=== PATIENT | male | born 1965 | race Caucasian/White ===

== ENCOUNTER 2018-11-04 07:33 | Day surgery (SDC) | payer OTHER ==
[~2018-11-04] VITALS: Ht 177.8 cm; Wt 98.3 kg
[~2018-11-04 07:33] MED LIST: Aspirin EC81 MG; B Complex #11 EACH PO; CLOP75; Coenzyme Q10400 MG; D3-20002000 UNIT PO; DIGO.125; FISH1000; HYDR1TAB94 PO; KRILL OIL 3001 EACH PO; LIVALO4 MG; LOSARTAN POTAS100 MG PO; METO50ER; NAPR220 PO; OLME20; TAMS.4ER PO; TEMA15
[2018-11-04] MEDS ORDERED: LIVALO4 MG PO (08:09)
[2018-11-04] MEDS ORDERED: LOSA50 PO (08:09)
[2018-12-05] MEDS ORDERED: HYDR1TAB94 PO (16:36)
== END 2018-11-04 10:15 | disposition home or self-care (01) ==
LOC: ORSCSDS 07:33
PROVIDERS: Internal Medicine Gastroenterology
PROC: 0DB68ZX Excision of Stomach, Via Natural or Artificial Opening Endoscopic, Diagnostic (ICD-10-PCS; principal; 2018-11-04 09:00)
PROC: 0DJD8ZZ Inspection of Lower Intestinal Tract, Via Natural or Artificial Opening Endoscopic (ICD-10-PCS; principal; 2018-11-04 09:00)
DX: K21.9 Gastro-esophageal reflux disease without esophagitis (principal); R05 Cough; K29.80 Duodenitis without bleeding; K64.8 Other hemorrhoids; Z12.11 Encounter for screening for malignant neoplasm of colon; Z86.010 Personal history of colon polyps; Z80.0 Family history of malignant neoplasm of digestive organs; I10 Essential (primary) hypertension; E78.5 Hyperlipidemia, unspecified; I25.10 Atherosclerotic heart disease of native coronary artery without angina pectoris; Z79.82 Long term (current) use of aspirin; Z79.899 Other long term (current) drug therapy
CPT/HCPCS: 88305; 88342; J0330; J1980; J2405; J7120

== ENCOUNTER 2018-12-08 06:04 | Day surgery (SDC) | payer OTHER ==
[~2018-12-08] VITALS: Ht 210.8 cm; Wt 103.0 kg
[~2018-12-08 06:04] MED LIST changes: +LIVALO4 MG PO; +LOSA50 PO
[2018-12-08] MEDS ORDERED: Isosorbide Mono30 MG PO (09:26)
--- NOTE | 2018-12-08 13:58 | NUR ---
PT REMINDED TO PICKUP NEW MEDICATION, CALLED IN TO HIS PHARMACY OF CHOICE. DISCHARGE TEACHING PERFORMED IN PRESENCE OF . EMPHASIZED MOBILITY RESTRICTIONS AND INFECTION CONTROL. QUESTIONS ANSWERED. SIGNED ACKNOWLEDGEMENTS OBTAINED AND COPIES PROVIDED. IV DC'D WITH CANNULA TIP INTACT. FOLDED 2X2 GAUZE PLACED WITH COBAN WRAP. PT ELECTED TO AMBULATE UPON DISCHARGE IN COMPANY OF PHYSICIAN. NO KNOWN COMPLICATIONS EVIDENT.
== END 2018-12-08 14:00 | disposition home or self-care (01) ==
LOC: MHTC 06:04
DX: I25.10 Atherosclerotic heart disease of native coronary artery without angina pectoris (principal); I10 Essential (primary) hypertension; Z87.891 Personal history of nicotine dependence
CPT/HCPCS: 85347; 93454; 93571; 93572; 99152; 99153; C1769; C1887; C1894; J1644; J2250; J3010; J7030; Q9967

== ENCOUNTER 2019-06-09 17:23 | Inpatient (IN) | payer OTHER ==
[~2019-06-09] VITALS: Ht 177.8 cm; Wt 96.4 kg
[~2019-06-09 17:23] MED LIST changes: -Aspirin EC81 MG; +Aspirin EC81 MG PO; +Isosorbide Mono30 MG PO; +MELATONIN5 M1 PO; -METO50ER; +METO50ER PO; +RANO500T PO; +REPATHA SU140 MG/1 M SC
[2019-06-09] MEDS ORDERED: Nitrostat0.4 MG SL (18:03)
[2019-06-09] MEDS ORDERED: CLOR7.5 PO (18:04)
[2019-06-09] MEDS ORDERED: TRAZ50 PO (18:04)
[2019-06-09 18:20] LABS: BASOPHILS ABSOLUTE AUTO 0.04 K/mm3 (0.00-0.23); BASOPHILS PERCENT AUTO 1 % (0-2); EOSINOPHILS ABSOLUTE AUTO 0.15 K/mm3 (0.00-0.68); EOSINOPHILS PERCENT AUTO 3 % (0-6); Hematocrit 40.8 % (37.0-53.0); Hemoglobin 13.9 g/dL (13.5-17.5); IMMATURE GRAN ABSOLUTE AUTO 0.02 K/mm3 (0.00-0.10); IMMATURE GRAN PERCENT AUTO 0 % (0-1); LYMPHOCYTES ABSOLUTE AUTO 1.37 K/mm3 (0.84-5.20); LYMPHOCYTES PERCENT AUTO 26 % (21-46); MONOCYTES ABSOLUTE AUTO 0.71 K/mm3 (0.16-1.47); MONOCYTES PERCENT AUTO 13 % (4-13); Mean Corpuscular HGB 32.1 pg (26.0-34.0); Mean Corpuscular HGB Conc 34.1 g/dL (31.5-36.5); Mean Corpuscular Volume 94 fL (80-100); Mean Platelet Volume 9.5 fL (9.1-12.4); NEUTROPHILS ABSOLUTE AUTO 3.05 K/mm3 (1.96-9.15); NEUTROPHILS PERCENT AUTO 57 % (41-73); Platelet Count 383 K/mm3 (150-400); RDW Coefficient Variation 13.6 % (11.7-14.2); RDW Standard Deviation 46.8 fL (35.1-46.3); Red Blood Cell Count 4.33 M/mm3 (4.30-5.90); White Blood Cell Count 5.34 K/mm3 (4.00-11.30)
[2019-06-09 18:39] LABS: Alanine Aminotransfer (ALT/SGP 28 U/L (12-78); Albumin, Blood 3.8 g/dL (3.4-5.0); Albumin/Globulin Ratio 1.1 (0.8-1.8); Alk Phos 78 U/L (50-136); Anion Gap 4 mmol/L (6-16); Aspartate Aminotrans (AST/SGOT 17 U/L (12-37); Bilirubin, Total 0.3 mg/dL (0.1-1.0); Blood Urea Nitrogen 16 mg/dL (8-24); CO2, Blood 26 mmol/L (21-32); Chloride, Blood 108 mmol/L (98-108); Creatinine, Blood 0.84 mg/dL (0.60-1.20); Globulin, Blood 3.4 g/dL (2.2-4.0); Glomerular Filtration Rate >60 (60-); Glucose, Blood 109 mg/dL (70-99); Potassium, Blood 3.8 mmol/L (3.5-5.5); Sodium, Blood 138 mmol/L (136-145); Total Protein, Blood 7.2 g/dL (6.4-8.2); Troponin I <0.015 ng/mL (0.000-0.040)
[2019-06-09] MEDS ORDERED: DILT120 PO (19:29)
--- NOTE | 2019-06-10 05:57 | NUR ---
CALLED MANAGER OF BUSINESS OPERATIONS. LEFT V/M REGARING APPOINTMENT PATIENT HAS WITH DR LARKIN AND HOW TO REACH US HERE ON THE MEDICAL FLOOR. SPOKE TO DR MAHARAJ REPORTED STATUS OF PREPARATIONS FOR PATIENT TO GO TO MANAGER OF BUSINESS OPERATIONS. WORKING ON PREOP CHECK LIST
--- NOTE | 2019-06-10 07:09 | NUR ---
TRANSFER PT OUT OF THE ROOM AND ALREADY TO THE LICENSED FUNERAL DIRECTOR AND EMBALMER PER THE NOC SHIFT RN, ASSESSMENT NOT DONE AT THIS TIME
--- NOTE | 2019-06-10 10:10 | NUR ---
PATIENT ARRIVED VIA ICU BED FROM HEAT TREATER TO ROOM ICU 8, PATIENT IS AWAKE, ALERT AND ORIENTED, AT BEDSIDE, PATIENT HAS SHEATH IN PLACE D/T HIGH APTT, PER DR. TOUSSAINT PULL SHEATH WHEN PT IS LESS THAN 40, WILL RECHECK AT NOON, RIGHT GROIN SITE SOFT, NONTENDER, NO BLEEDING OR HEMATOMA NOTED, HAS PRESSURE BAG IN PLACE, PATIENT WAS INSTRUCTED THAT HE CANNOT MOVE RIGHT LEG BUT MAY BEND LEFT LEG, ALSO WILL HAVE TO LIE FLAT UNTIL 4 HOURS AFTER SHEATH IS PULLED, THEN ABLE TO SIT UP, PULSES ARE PALPABLE, NS INFUSING AT 125 CC/HR, PATIENT URINATED 375 CC IN URINAL, ORIENTED TO ROOM AND NEW ENVIRONMENT, CALL LIGHT GIVEN AND EXPLAINED, ICE WATER AT BEDSIDE, CALL LIGHT IN REACH WILL CONTINUE TO MONITOR.
--- NOTE | 2019-06-10 10:15 | NUR ---
PATIENT HAD A STENT TO THE PROXIMAL LAD RE-BALLOONED, AND A NEW STENT PLACED IN THE MID LAD.
--- NOTE | 2019-06-10 12:03 | NUR ---
IMAGING IN TO DO ORDERED ECHO, PATIENT NOT ABLE TO BE REPOSITIONED, ECHO DONE WITH PATIENT LYING FLAT.
[2019-06-10 12:56] LABS: International Normalized Ratio 1.06; Prothrombin Time Results 11.2 Sec (9.7-11.5)
--- NOTE | 2019-06-10 13:12 | NUR ---
PT WAS DRAWN AND RESULTED IN 11.2, WHICH INDICATES THAT SHEATH MAY BE REMOVED.
--- NOTE | 2019-06-10 14:10 | NUR ---
RN FROM OLERICULTURE PROFESSOR HERE TO PULL SHEATH FROM PATIENT'S RIGHT GROIN, AT BEDSIDE, CALL LIGHT IN REACH, WILL CONTINUE TO MONITOR.
--- NOTE | 2019-06-10 15:41 | NUR ---
SHEATH WAS PULLED AT ABOUT 1415, PATIENT TOLERATED WELL, RIGHT GROIN SITE COVERED WITH MIMI DEVICE, NO BLEEDING OR HEMATOMA NOTED, SOFT, NONTENDER, PATIENT RESTING COMFORTABLY, AT BEDSIDE, CALL LIGHT IN REACH, WILL CONTINUE TO MONITOR.
--- NOTE | 2019-06-10 16:07 | NUR ---
DR. PALACIOS IN TO SEE PATIENT, NO NEW ORDERS RECEIVED.
--- NOTE | 2019-06-10 16:56 | NUR ---
PATIENT SLEEPING AT THIS TIME, EARPLUGS GIVEN, VSS, CALL LIGHT IN REACH, AT BEDSIDE, WILL CONTINUE TO MONITOR.
--- NOTE | 2019-06-10 17:50 | NUR ---
SHIFT SUMMARY NOTE: NO ACUTE EVENTS DURING THIS SHIFT, PATIENT CAME FROM RETURNED GOODS SORTER WITH SHEATH IN PLACE, WAS PULLED AFTER PT LESS THAN 40, PT 11.2 AT THAT TIME, PULLED BY RETURNED GOODS SORTER RN, PATIENT TOLERATED WELL, NO BLEEDING, NO HEMATOMA, SOFT AND NONTENDER, OPSITE IN PLACE, VSS, AFEBRILE, RECEIVED NORCO ONCE FOR BACK PAIN, EATING WELL, WAS AT BEDSIDE MOST OF THE DAY, FOR DETAILS SEE SHIFT ASSESSMENT DOCUMENTATION AND NURSES NOTES, CALL LIGHT IN REACH, WILL CONTINUE TO MONITOR AND GIVE REPORT TO ONCOMING METAL DOOR ASSEMBLER.
--- NOTE | 2019-06-10 19:00 | NUR ---
ASSUMED CARE ASSUMED CARE OF PATIENT. AWAKE AND ALERT, WATCHING TV WHEN UNDISTURBED. DENIES C/O PAIN OR DISCOMFORT AT THIS TIME. REPOSITIONS SELF IN BED. MONITOR SHOWS NSR, RATE 70s. BP STABLE. RESPIRATIONS EVEN AND UNLABORED. RA SATS STABLE. RIGHT GROIN SITE WITH DRSG C/D/I. NO EVIDENCE OF HEMATOMA OR BLEEDING. SEE SHIFT ASSESSMENT FOR FULL ASSESSMENT.
--- NOTE | 2019-06-11 06:29 | NUR ---
SHIFT SUMMARY NO ACUTE CHANGES DURING NOC. SLEPT INTERMITTENTLY. DENIES C/O PAIN OR DISCOMFORT. VSS. UP IN ROOM AD MADI. RIGHT GROIN SITE SOFT AND WITHOUT HEMATOMA OR BLEEDING. SUN C/D/I. WILL REPORT TO DAY SHIFT RN WHEN AVAILABLE.
[2019-06-11] MEDS ORDERED: ASPI325 PO (07:47)
[2019-06-11] MEDS ORDERED: CLOP75 PO (07:48)
--- NOTE | 2019-06-11 09:36 | NUR ---
0700-ASSUMED CARE OF PT. PT IS ALERT AND ORIENTED. PT STATES HE HAS SLIGHT CHEST PAIN BUT HAS IMPROVED FROM 2 DAYS AGO. PT HAS BEEN AMBULATING INSIDE THE ROOM. 0730-DR. LUTHER CAME BY TO SEE PT. PT WILL BE DISCHARGED TODAY. 0935-DISCHARGE INSTRUCTIONS WERE GIVEN TO PATIENT. PT WAS DISCHARGED AT THIS TIME.
== END 2019-06-11 09:35 | disposition home or self-care (01) | DRG 247 ==
LOC: ER 17:23 → MEDS 17:24 → ICUE 06-10 10:10
PROVIDERS: Emergency Medicine; Internal Medicine Interventional Cardiology; ADMIT Hospitalist
PROC: 4A023N7 Measurement of Cardiac Sampling and Pressure, Left Heart, Percutaneous Approach (ICD-10-PCS; principal; 2019-06-10)
PROC: 027034Z Dilation of Coronary Artery, One Artery with Drug-eluting Intraluminal Device, Percutaneous Approach (ICD-10-PCS; 2019-06-10)
PROC: B211YZZ Fluoroscopy of Multiple Coronary Arteries using Other Contrast (ICD-10-PCS; 2019-06-10)
DX: I25.110 Atherosclerotic heart disease of native coronary artery with unstable angina pectoris (principal); R07.9 Chest pain, unspecified; E78.5 Hyperlipidemia, unspecified; N40.0 Benign prostatic hyperplasia without lower urinary tract symptoms; Z95.5 Presence of coronary angioplasty implant and graft
CPT/HCPCS: 36415; 71046; 80053; 84484; 85025; 85347; 85610; 92920; 92978; 93005; 93010; 93308; 93321; 93459; 93571; 99152; 99153; 99285-25; A9270-GY; C1725; C1753; C1769; C1874; C1887; C1894; C9600; G0378; J0153; J1644; J1650; J2250; J3010; J7030; J7040; Q9967

== ENCOUNTER 2019-06-17 12:55 | Emergency (ER) | payer OTHER ==
[~2019-06-17] VITALS: Ht 177.8 cm; Wt 102.1 kg
[~2019-06-17 12:55] MED LIST changes: +ASPI325 PO; +CLOP75 PO; +CLOR7.5 PO; +DILT120 PO; +Nitrostat0.4 MG SL; +TRAZ50 PO
[2019-06-17 13:27] LABS: BASOPHILS ABSOLUTE AUTO 0.04 K/mm3 (0.00-0.23); BASOPHILS PERCENT AUTO 1 % (0-2); EOSINOPHILS PERCENT AUTO 2 % (0-6); Hematocrit 39.8 % (37.0-53.0); Hemoglobin 13.3 g/dL (13.5-17.5); IMMATURE GRAN ABSOLUTE AUTO 0.01 K/mm3 (0.00-0.10); IMMATURE GRAN PERCENT AUTO 0 % (0-1); LYMPHOCYTES ABSOLUTE AUTO 1.21 K/mm3 (0.84-5.20); LYMPHOCYTES PERCENT AUTO 25 % (21-46); MONOCYTES ABSOLUTE AUTO 0.61 K/mm3 (0.16-1.47); MONOCYTES PERCENT AUTO 12 % (4-13); Mean Corpuscular HGB Conc 33.4 g/dL (31.5-36.5); Mean Corpuscular Volume 96 fL (80-100); Mean Platelet Volume 9.6 fL (9.1-12.4); NEUTROPHILS ABSOLUTE AUTO 2.96 K/mm3 (1.96-9.15); NEUTROPHILS PERCENT AUTO 60 % (41-73); Platelet Count 356 K/mm3 (150-400); RDW Coefficient Variation 13.2 % (11.7-14.2); RDW Standard Deviation 47.2 fL (35.1-46.3); Red Blood Cell Count 4.16 M/mm3 (4.30-5.90); White Blood Cell Count 4.93 K/mm3 (4.00-11.30)
[2019-06-17 13:43] LABS: Alanine Aminotransfer (ALT/SGP 25 U/L (12-78); Albumin, Blood 3.7 g/dL (3.4-5.0); Albumin/Globulin Ratio 1.1 (0.8-1.8); Alk Phos 77 U/L (50-136); Anion Gap 7 mmol/L (6-16); Aspartate Aminotrans (AST/SGOT 14 U/L (12-37); Bilirubin, Total 0.3 mg/dL (0.1-1.0); Blood Urea Nitrogen 17 mg/dL (8-24); Bun/Creatinine Ratio 18.6 (12.0-20.0); CO2, Blood 25 mmol/L (21-32); Calcium, Blood 8.9 mg/dL (8.5-10.1); Chloride, Blood 107 mmol/L (98-108); Creatinine, Blood 0.92 mg/dL (0.60-1.20); Globulin, Blood 3.3 g/dL (2.2-4.0); Glomerular Filtration Rate >60 (60-); Glucose, Blood 106 mg/dL (70-99); Potassium, Blood 4.3 mmol/L (3.5-5.5); Sodium, Blood 139 mmol/L (136-145); Troponin I <0.015 ng/mL (0.000-0.040)
== END 2019-06-17 14:54 | disposition home or self-care (01) ==
LOC: ER 12:55
PROVIDERS: Physician Assistant
DX: R07.89 Other chest pain (principal); Z88.8 Allergy status to other drugs, medicaments and biological substances; Z79.899 Other long term (current) drug therapy; Z79.82 Long term (current) use of aspirin; I10 Essential (primary) hypertension; E78.5 Hyperlipidemia, unspecified; I25.10 Atherosclerotic heart disease of native coronary artery without angina pectoris
CPT/HCPCS: 36415; 71046; 80053; 83880; 84484; 85025; 93005; 93010; 96374; 99285-25; J1885

== ENCOUNTER → 2021-06-13 | Outpatient (CLI) | payer OTHER ==
[~2021-06-13] MED LIST changes: +AMLO5 PO; +Aspir 8181 MG PO; +EZET10 PO; +GABA400 PO; +ISODIN10
== END ==
LOC: LAB 12:05 → LAB SHORT 12:05
DX: D48.5 Neoplasm of uncertain behavior of skin (principal); L57.0 Actinic keratosis; Z88.8 Allergy status to other drugs, medicaments and biological substances
CPT/HCPCS: 88305

== ENCOUNTER 2024-05-20 08:45 | Day surgery (SDC) | payer OTHER ==
[~2024-05-20] VITALS: Ht 177.8 cm; Wt 95.3 kg
[2024-05-20] MEDS ORDERED: CeFAZolin Sodium 2,000 MG VIAL ONE (09:06)
[2024-05-20] MEDS ORDERED: NS 50 ML IV ONE (09:07)
[2024-05-20] MEDS ORDERED: Lactated Ringer's 1,000 ML IV ONE ×3 (09:07→11:31)
[2024-05-20] MEDS ORDERED: Tranexamic Acid 100 ML IV ONE (09:41)
[2024-05-20] MEDS ORDERED: UBID10 (09:47)
[2024-05-20] MEDS ORDERED: TRAZ50 (09:50)
[2024-05-20] MEDS ORDERED: Bupivacaine HCl 0.25% 30 ML Injection ONE (09:50)
[2024-05-20] MEDS ORDERED: MELATONIN5 M1 (09:50)
[2024-05-20] MEDS ORDERED: Dexamethasone Sod Phos 10 MG/ML 1ML VIAL ONE (09:51)
[2024-05-20] MEDS ORDERED: EPINEPhrine HCl 1 MG/ML 1ML Amp ONE (09:51)
[2024-05-20] MEDS ORDERED: FentaNYL Citrate 50 MCG/ML 2 ML Injection ONE (09:53)
[2024-05-20] MEDS ORDERED: Midazolam HCl 1MG / ML 2ML Vial ONE (09:53)
[2024-05-20] MEDS ORDERED: Lidocaine 1%-Epineph 1:100000 20 ML MDV ONE (10:25)
[2024-05-20] MEDS ORDERED: propofoL 20 ML IV ONE (10:42)
[2024-05-20] MEDS ORDERED: ePHEDrine Sulfate 50 MG/ML 1ML Injection ONE (11:18)
--- NOTE | 2024-05-20 11:20 | NUR ---
05/20/24 1120 Evonne Barger 1X GEL PAD UNDER BOTTOM. 1X GEL PAD UNDER LEFT ARM. 2X SAFETY STRAPS WITH 1X GEL PAD UNDER EACH STRAP. STANDARD FOAM FACE MASK.
[2024-05-20] MEDS ORDERED: EPINEPhrine HCl 1 MG/ML 1ML Amp XX ONE (11:30)
[2024-05-20] MEDS ORDERED: Rocuronium Bromide 10 MG/ML 5ML Injection IV ONE (12:26)
--- NOTE | 2024-05-20 12:54 | NUR ---
05/20/24 1254 ROSENDO ELIZABETH PT WAKES BRIEFLY WITH STIMULATION. FALLS RIGHT BACK TO SLEEP. PT ON 10L VIA FACE TENT.
[2024-05-20 13:12] VITALS: BP 115/73
--- NOTE | 2024-05-20 14:27 | NUR ---
05/20/24 2396 ROSENDO ELIZABETH PT AND REQUESTED THAT HE NOT BE GIVEN AN INCENT. SPIROM, SINCE THEY HAVE SEVERAL AT HOME. PROMISED TO COUGH REGULARLY.
== END 2024-05-20 14:20 | disposition home or self-care (01) ==
LOC: ORSCSDS 08:45
PROVIDERS: Orthopaedic Surgery Sports Medicine
PROC: 0RNJ4ZZ Release Right Shoulder Joint, Percutaneous Endoscopic Approach (ICD-10-PCS; principal; 2024-05-20 10:00)
DX: M75.101 Unspecified rotator cuff tear or rupture of right shoulder, not specified as traumatic (principal); M19.011 Primary osteoarthritis, right shoulder; I10 Essential (primary) hypertension; I25.810 Atherosclerosis of coronary artery bypass graft(s) without angina pectoris; I25.2 Old myocardial infarction; Z95.1 Presence of aortocoronary bypass graft; Z79.82 Long term (current) use of aspirin; Z79.899 Other long term (current) drug therapy; Z87.891 Personal history of nicotine dependence
CPT/HCPCS: C1713; J0171; J0690; J1100; J2250; J2704; J3010; J7120

== ENCOUNTER 2025-07-23 12:08 | Emergency (ER) | payer OTHER ==
[~2025-07-23] VITALS: Ht 182.9 cm; Wt 81.7 kg
[~2025-07-23 12:08] MED LIST changes: +MELATONIN5 M1; +TRAZ50; +UBID10
[2025-07-23] MEDS ORDERED: Morphine Sulfate 4 MG/1 ML Injection IV ONE (12:15)
--- NOTE | 2025-07-23 12:27 | NUR ---
"Spiritual Care | Trauma Team Pt. arrives in ED26. This mother baby rn sits with spouse in the consult room. facilitated some life review and prayed with Spouse. Spouse is brought to bedside where the Pt. recognizes this mother baby rn from the community and verbalizes gratitude for the spiritual care support."
[2025-07-23 12:28] LABS: BASOPHILS ABSOLUTE AUTO 0.05 K/mm3 (0.00-0.23); BASOPHILS PERCENT AUTO 1 % (0-2); EOSINOPHILS ABSOLUTE AUTO 0.07 K/mm3 (0.00-0.68); EOSINOPHILS PERCENT AUTO 1 % (0-6); Hematocrit 36.7 % (37.0-53.0); Hemoglobin 12.6 g/dL (13.5-17.5); IMMATURE GRAN ABSOLUTE AUTO 0.05 K/mm3 (0.00-0.10); IMMATURE GRAN PERCENT AUTO 1 % (0-1); LYMPHOCYTES ABSOLUTE AUTO 1.79 K/mm3 (0.84-5.20); LYMPHOCYTES PERCENT AUTO 19 % (21-46); MONOCYTES ABSOLUTE AUTO 0.52 K/mm3 (0.16-1.47); MONOCYTES PERCENT AUTO 6 % (4-13); Mean Corpuscular HGB Conc 34.3 g/dL (31.5-36.5); Mean Corpuscular Volume 97 fL (80-100); NEUTROPHILS ABSOLUTE AUTO 6.75 K/mm3 (1.96-9.15); NEUTROPHILS PERCENT AUTO 73 % (41-73); NRBC ABSOLUTE 0.00 K/mm3 (0.00-0.02); NRBC Auto 0.0 /100 WBC (0.0-0.2); Platelet Count 319 K/mm3 (150-400); RDW Coefficient Variation 11.9 % (11.7-14.2); RDW Standard Deviation 42.2 fL (35.1-46.3)
[2025-07-23] MEDS ORDERED: NS 1,000 ML IV ONE (12:36)
[2025-07-23 12:44] LABS: Prothrombin Time Results 11.4 Sec (9.7-11.5)
[2025-07-23 12:56] LABS: Alanine Aminotransfer (ALT/SGP 453 U/L (12-78); Albumin, Blood 3.3 g/dL (3.4-5.0); Albumin/Globulin Ratio 1.2 (0.8-1.8); Anion Gap 9 mmol/L (3-11); Aspartate Aminotrans (AST/SGOT 399 U/L (12-37); Bilirubin, Total 0.3 mg/dL (0.1-1.0); Blood Urea Nitrogen 20 mg/dL (8-24); CO2, Blood 26 mmol/L (21-32); Calcium, Blood 8.4 mg/dL (8.5-10.1); Chloride, Blood 105 mmol/L (98-108); Creatinine, Blood 1.10 mg/dL (0.60-1.20); Ethanol (Alcohol), Blood, Med <3 mg/dL; Globulin, Blood 2.8 g/dL (2.2-4.0); Glucose, Blood 145 mg/dL (70-99); Potassium, Blood 4.6 mmol/L (3.5-5.5); Sodium, Blood 135 mmol/L (136-145); Total Protein, Blood 6.1 g/dL (6.4-8.2)
[2025-07-23] MEDS ORDERED: FentaNYL Citrate 50 MCG/ML 2 ML Injection IV ONE ×3 (13:00→17:25)
[2025-07-23] MEDS ORDERED: Tranexamic Acid 100 ML IV ONE ×3 (13:07→13:15)
[2025-07-23] MEDS ORDERED: Tranexamic Acid 1000 MG/10 ML 10ML Vial (SDV) ONE (13:07)
[2025-07-23] MEDS ORDERED: FentaNYL Citrate 50 MCG/ML 2 ML Injection ONE ×3 (13:14→14:55)
[2025-07-23] MEDS ORDERED: NS 2,000 ML IV ONE (13:19)
[2025-07-23] MEDS ORDERED: NS 250 ML IV ONE (13:19)
[2025-07-23] MEDS ORDERED: Heparin Sodium 1000 Units/ML 10ML MDV ONE (13:19)
[2025-07-23] MEDS ORDERED: NS 100 ML IV ONE (13:23)
[2025-07-23] MEDS ORDERED: Midazolam HCl 1MG / ML 2ML Vial ONE (13:34)
[2025-07-23] MEDS ORDERED: Phenylephrine HCl 100 MCG/ML-NS 10MLSYR (1MG/10ML) ONE (13:47)
[2025-07-23 14:42] LABS: Calcium, Ionized (POC) 1.17 mmol/L (1.10-1.46); Chloride (POC) 102 mmol/L (98-108); Creatinine (POC) 1.3 mg/dL (0.8-1.3); Glucose (ISTAT POC) 138 mg/dL (70-99); Hematocrit (POC) 32.0 % (41.0-53.0); Hemoglobin (POC) 10.9 g/dL (13.5-17.5); Potassium (POC) 4.5 mmol/L (3.5-5.5); Sodium (POC) 137 mmol/L (135-148); Total CO2 (POC) 22 mmol/L (21-32)
[2025-07-23] MEDS ORDERED: CeFAZolin Sodium 2,000 MG in NS 100 ML IV ONE (15:35)
--- NOTE | 2025-07-23 15:37 | NUR ---
Family Support and beside prayer with Pt. led by Pts. prior to helicopter transport.
[2025-07-23 17:37] VITALS: BP 118/78
== END 2025-07-23 15:35 | disposition short-term general hospital (02) ==
LOC: ER 12:08
PROVIDERS: Student in an Organized Health Care Education/Training Program
DX: T79.4XXA Traumatic shock, initial encounter (principal); S27.0XXA Traumatic pneumothorax, initial encounter; S42.021A Displaced fracture of shaft of right clavicle, initial encounter for closed fracture; S22.41XA Multiple fractures of ribs, right side, initial encounter for closed fracture; S37.031A Laceration of right kidney, unspecified degree, initial encounter; S36.039A Unspecified laceration of spleen, initial encounter; I10 Essential (primary) hypertension; E78.5 Hyperlipidemia, unspecified; Z79.899 Other long term (current) drug therapy; Z79.2 Long term (current) use of antibiotics; Z88.8 Allergy status to other drugs, medicaments and biological substances; V20.49XA Other motorcycle driver injured in collision with pedestrian or animal in traffic accident, initial encounter
CPT/HCPCS: 32551; 36251-RT; 36430; 37244; 70450; 71045; 71260; 72125; 74177; 75726; 76937; 80047; 80053; 80320; 83690; 85014; 85025; 85610; 86850; 86900; 86901; 86920; 96374-59; 96376-59; 99152; 99153; 99285-25; C1760; C1769; C1887; C1894; J0612; J0690; J1644; J2250; J2371; J3010; J7030; J7050; P9016; P9059; Q9967

== ENCOUNTER → 2025-08-16 | Outpatient (CLI) | payer OTHER ==
[2025-08-16 11:02] LABS: BASOPHILS ABSOLUTE AUTO 0.07 K/mm3 (0.00-0.23); BASOPHILS PERCENT AUTO 1 % (0-2); EOSINOPHILS ABSOLUTE AUTO 0.18 K/mm3 (0.00-0.68); EOSINOPHILS PERCENT AUTO 2 % (0-6); Hematocrit 29.2 % (37.0-53.0); Hemoglobin 9.2 g/dL (13.5-17.5); IMMATURE GRAN ABSOLUTE AUTO 0.08 K/mm3 (0.00-0.10); IMMATURE GRAN PERCENT AUTO 1 % (0-1); LYMPHOCYTES ABSOLUTE AUTO 1.19 K/mm3 (0.84-5.20); LYMPHOCYTES PERCENT AUTO 13 % (21-46); MONOCYTES ABSOLUTE AUTO 0.92 K/mm3 (0.16-1.47); MONOCYTES PERCENT AUTO 10 % (4-13); Mean Corpuscular HGB Conc 31.5 g/dL (31.5-36.5); Mean Corpuscular Volume 94 fL (80-100); NEUTROPHILS ABSOLUTE AUTO 6.64 K/mm3 (1.96-9.15); NEUTROPHILS PERCENT AUTO 73 % (41-73); NRBC ABSOLUTE 0.00 K/mm3 (0.00-0.02); NRBC Auto 0.0 /100 WBC (0.0-0.2); Platelet Count 999 K/mm3 (150-400); RDW Coefficient Variation 15.1 % (11.7-14.2); RDW Standard Deviation 51.4 fL (35.1-46.3)
[2025-08-16 11:06] LABS: Alanine Aminotransfer (ALT/SGP 79.0 U/L (12-78); Albumin/Globulin Ratio 0.5 (0.8-1.8); Anion Gap 14.0 mmol/L (3-11); Aspartate Aminotrans (AST/SGOT 53.0 U/L (12-37); Bilirubin, Total 0.7 mg/dL (0.1-1.0); Blood Urea Nitrogen 17.0 mg/dL (8-24); CO2, Blood 24.0 mmol/L (21-32); Calcium, Blood 9.2 mg/dL (8.5-10.1); Chloride, Blood 100.0 mmol/L (98-108); Creatinine, Blood 1.02 mg/dL (0.60-1.20); Globulin, Blood 5.4 g/dL (2.2-4.0); Glucose, Blood 107.0 mg/dL (70-99); Magnesium, Blood 2.2 mg/dL (1.6-2.4); Phosphorus, Blood 3.0 mg/dL (2.5-4.9); Potassium, Blood 4.4 mmol/L (3.5-5.5); Sodium, Blood 134.0 mmol/L (136-145); Total Protein, Blood 7.9 g/dL (6.4-8.2)
[2025-08-16 11:22] LABS: Albumin, Blood 2.5 g/dL (3.4-5.0)
== END ==
LOC: LAB 10:16 → LAB SHORT 10:16
PROVIDERS: Family Medicine
DX: R06.02 Shortness of breath (principal)
CPT/HCPCS: 80053; 82330; 83605; 83735; 84100; 85025; 87040